=== PATIENT | female | born 1985 | race Caucasian/White ===

== ENCOUNTER 2025-05-02 00:44 | Inpatient (IN) ==
[2025-05-02] MEDS: LACTATED RINGER'S 1,000 ML IV PRN (01:00)
[2025-05-02] MEDS: OXYTOCIN 30 UNITS/NSS 30 UNITS/500 ML BAG IV PRN (01:19)
--- NOTE | 2025-05-02 01:39 | Delivery Summary ---
Vaginal Delivery Summary Date of Service May 02, 2025 Vaginal Delivery Summary Vaginal Delivery Summary: Pre-delivery diagnoses: precipitous delivery Post-delivery diagnoses: same Procedure: spontaneous vaginal delivery Surgeon: Ladonna Esqueda DO Complications: none Findings: Viable male . Apgars 8/9 and weight pending, please see nursery records. Estimated blood loss: please see nursing record for QBL at end of case. Description of delivery: The patient arrived at labor and delivery, per nursing report membranes ruptured when she was in the bathroom, then felt strong urge to push. I was at hospital, therefore was asked by nursing staff to attend delivery, patient's slitter scorer cut off operator was called and en route. She felt overwhelming urge to push and pushed with one contraction to spontaneously vaginally deliver a viable from the cephalic presentation. The head delivered in NATTY position. Nuchal x 2 and around hand, reduced easily. The anterior shoulder delivered, followed by the posterior shoulder, followed by the body. The baby was placed on mother's abdomen and a spontaneous cry was heard. Delayed cord clamping was employed, and the cord was doubly clamped and cut. Cord blood was obtained. The placenta was delivered spontaneously intact with a 3-vessel cord. The uterus and vagina were swept of clots and debris. IV pitocin was given. The uterus became firm. The cervix, vagina, and perineum were inspected - 2nd degree perineal laceration noted, this was injected with 10ml 1% plain lidocaine. Excellent hemostasis was observed. At this point, Dr Phillip was in the room and I turned care of patient over to him for perineal repair and further care. The mother and baby are recovering in stable and good condition in the room. Ladonna Esqueda DO [facility] Vaginal Delivery Charge Delivery Type Details:
[2025-05-02] MEDS ORDERED: DIPHTHER/TETAN/PERTUS Vaccine (Tdap, Adol/Adult) 0.5mL IM ONE (01:53)
[2025-05-02] MEDS ORDERED: OXYTOCIN 30 UNITS/NSS 30 UNITS/500 ML BAG IV PRN (01:53)
[2025-05-02] MEDS ORDERED: HYDROCORTISONE ACETATE 25 MG SUPP PR PRN (01:53)
[2025-05-02] MEDS: LIDOCAINE 1% LOCAL 20 ML VIAL INFIL PRN (02:49)
[2025-05-02] MEDS: ACETAMINOPHEN 325 MG TAB PO PRN (02:54)
[2025-05-02] MEDS: IBUPROFEN 600 MG TAB PO PRN (02:54)
[2025-05-02] MEDS: BENZOCAINE 20% SPRY 85 APPLN/85 GM CAN EXT PRN (02:56)
[2025-05-02 04:34] LABS: Hematocrit (blood only) 34.8 % (37.0-47.0); Hemoglobin 12.4 g/dl (12.0-16.0); Mean Corpuscular Hemoglobin 32.5 pg (25.0-34.0); Mean Corpuscular Volume 91.1 fL (80.0-100.0); Platelet Count 144 K/uL (130-400); RDW Standard Deviation 41.3 fL (36.4-46.3); Red Blood Count 3.82 M/uL (4.20-5.40); White Blood Count 12.47 K/ul (4.8-10.8)
[2025-05-02 06:11] LABS: Alanine Aminotransferase 9.0 U/L (7-52); Albumin Globulin Ratio 1.1 (0.9-2); Alkaline Phosphatase 108.0 U/L (34-104); Anion Gap 10.0 (3-11); Bilirubin,Total 0.4 mg/dl (0.2-1.0); Blood Urea Nitrogen 20.0 mg/dl (6-23); Calcium 9.1 mg/dl (8.6-10.3); Carbon Dioxide 18.0 mmol/L (21-32); Chloride 104.0 mmol/L (98-107); Creatinine Clr Calc Pharmacy 78.0 ml/min; Globulin 2.7 gm/dl (2.5-4.0); Glucose 119.0 mg/dl (70-99(Fasting)); Potassium 3.5 mmol/L (3.5-5.1); Sodium 132.0 mmol/L (136-145); Total Protein 5.8 gm/dl (6.0-8.3)
[2025-05-02] MEDS: DOCUSATE SODIUM 100 MG CAP PO SCH (07:45)
[2025-05-02] MEDS: PRENATAL VITAMIN 1 TAB PO SCH (07:45)
[2025-05-03 06:11] LABS: Hematocrit (blood only) 34.2 % (37.0-47.0); Hemoglobin 12.0 g/dl (12.0-16.0); Mean Corpuscular Hemoglobin 33.3 pg (25.0-34.0); Mean Corpuscular Volume 95.0 fL (80.0-100.0); Platelet Count 143 K/uL (130-400); RDW Standard Deviation 44.5 fL (36.4-46.3); Red Blood Count 3.60 M/uL (4.20-5.40); White Blood Count 8.17 K/ul (4.8-10.8)
[2025-05-03 07:04] VITALS: RESP 18; TEMP 97.5
[2025-05-03 09:27] VITALS: BP 148/94; O2SAT 98
--- NOTE | 2025-05-03 11:24 | Obstetrical Progress Note ---
Date of Service May 03, 2025 Subjective Ambulation: ambulating normally Voiding: no voiding problems Passing Gas:: Yes Diet Tolerance:: regular diet Lochia:: Small Feeding Type:: breast feeding Current Pain Level(1-10): 0 doing well Physical Exam Constitutional WD/WN, vitals as above Gastrointestinal (Abdomen) Inspection/Auscultation: abdomen normal to inspection abdomen soft and non-tender. fundus firm below U Musculoskeletal Extremities: extremities normal to inspection Skin no rashes, warm and dry Neurologic patellar DTR's 2+ bilat, sensation intact Psychiatric A+Ox3, euthymic affect Results & Data Vital Signs (Past 12 Hours) Vital Signs Temp Pulse Resp BP Pulse Ox O2 Del Method 05/03/25 07:25 Room Air 05/03/25 07:25 36.4 C L 60 18 148/94 H 98 Room Air 05/03/25 07:00 36.4 C L 52 L 18 154/90 H 97 Room Air 05/03/25 00:05 36.5 C 54 L 16 131/81 96 Room Air Laboratory Results Laboratory Results - last 72 hr 05/02/25 05/02/25 05/03/25 04:08 04:13 05:40 WBC 12.47 H 8.17 RBC 3.82 L 3.60 L Hgb 12.4 12.0 Hct 34.8 L 34.2 L MCV 91.1 95.0 MCH 32.5 33.3 MCHC 35.6 35.1 RDW Std Deviation 41.3 44.5 RDW Coeff of Natalia 12.6 12.9 Plt Count 144 143 MPV 10.8 10.3 Sodium 132 L Potassium 3.5 Chloride 104 Carbon Dioxide 18 L Anion Gap 10 BUN 20 Creatinine 0.86 Est Cr Clr Drug Dosing 78.0 eGFR 89.18 BUN/Creatinine Ratio 23.3 H Glucose 119 H Calcium 9.1 Total Bilirubin 0.4 AST 17 ALT 9 Alkaline Phosphatase 108 H Total Protein 5.8 L Albumin 3.1 L Globulin 2.7 Albumin/Globulin Ratio 1.1 Treponema pallidum Ab Negative
[2025-05-03 11:33] VITALS: PULSE 50
--- NOTE | 2025-05-18 13:16 | Obstetrical Progress Note ---
Date of Service May 18, 2025 Assessment & Plan (1) Normal course: Plan: Late Note entry: Pt was delivered by Dr Esqueda on 05/02/25 . this was a precipitous delivery. i therefore did not make it to the delivery Pt has 2nd degree mid laceration. I repaired this laceration with 2-0 vicryl in layers. There was hemostasis post repair. Rectal exam post repair showed good sphincter tone. No sutures palpated in rectum Admission and Anticipated Discharge Date Admission Date: May 02, 2025
== END 2025-05-03 13:05 | disposition home or self-care (01) | DRG 807 ==
LOC: OPB 00:44 → 4S1 00:51 → 4E2 04:29